=== PATIENT | female | born 2005 | race Caucasian/White ===

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

== ENCOUNTER 2025-08-20 22:15 | Emergency (ER) | payer OTHER, SELFPAY ==
[2025-08-20 22:15] VITALS: BP 125/82; PULSE 75; RESP 14; TEMP 36.9; O2SAT 99; BMI 23.3
[2025-08-20 22:18] VITALS: BP 113/53; PULSE 81; RESP 16; TEMP 36.9; O2SAT 97
--- OUTSIDE RECORDS SUMMARY | 2025-08-20 22:34 | XMS RPT_ITS | CCD ---
Author Organization [facility] Care Team Providers Care Project Management Intern Name Role Phone SELF Referring Unavailable KVNG RODRIGUEZ Attending Unavailable Problems Problem Classification Problem Date Documented Date Episodic/Chronic Contraceptive and procreative management (1 source) Encounter for removal of intrauterine contraceptive device; Translations: [Encounter for IUD removal] Onset: 06-22-2025 Episodic Immunizations and screening for infectious disease (1 source) Encounter for screening for human papillomavirus (HPV); Translations: [Encounter for screening for human papillomavirus (HPV)] Onset: 06-22-2025 Episodic Other screening for suspected conditions (not mental disorders or infectious disease) (1 source) Encounter for screening for malignant neoplasm of cervix; Translations: [Screening for cervical cancer] Onset: 06-22-2025 Episodic Results Test Name Value Interpretation Reference Range Facil ity CNOVon 06-22-2025 CNOV Office Visit (OBGYWM ) ANTONY DIOR ([id number]) 3 F Date Time Provider Department 06/22/25 9:40 AM KVNG RODRIGUEZ OBGYWM During your visit today, we recorded the following information about you: Blood pressure Weight Height Last Period 122/70 65.2 kg 1.704 m 06/07/25 Kvng Rodriguez MD 06/22/2025 10:06 AM Signed Patient declined yard associate. Antony is a 20 year old No obstetric history on file. who presents for an annual gynecologic exam with complaints, intermittent pelvic pain.. Has acne and pelvic pain since she had her child and had IUD placed. WOuld like to have it out. Still get period: Yes 06/07/2025 Bleeding amount bothersome: No Bleeding between periods: No Period symptoms: Acne; Cramps; Mood change Time with current partner: 1 yr Number of lifetime partners: 2 control frequency: Always, Lyletta placed 04/24/2022 HPV vaccine: yes x2 HPV:N/A Last pap smear: History of abnormal pap: No, all prior PAP smears have been normal Bothersome pelvic pain: No Last mammogram: never OB History No obstetric history on file. [employer] History LMP: 06/07/2025 Age at Menarche: 13 Age at First : Age at Menopause: [employer] History Comments: Sexual Activity: No sexual activity data on record; No partner data on record Contraception: No contraception data on record Menstrual Tracking History Flowsheet Row Appointment from 06/22/2025 in OB/Gynecology Period Cycle (Days) 5 Period Duration (Days) 5 Menstrual Flow Moderate No past medical history on file.No past surgical history on file.No family history on file.SOCIAL HISTORY REVIEW OF SYSTEMS Abdomen: No abdominal pain, nausea, vomiting, diarrhea, or constipation. No bloating, early satiety, indigestion, or increased flatulence. Bladder: No dysuria, gross hematuria, urinary frequency, urinary urgency, or incontinence. Breast: No breast lumps, nipple d/c, overlying skin changes, redness or skin retraction. Allergies and current medication updated:Yes SENSITIVE EXAM: The sensitive examination was discussed with the Patient or Patient's Authorized Litharge Supervisor. As applicable, any other physician, advance practice provider, medical student, or other health professional student that will be observing or involved in the sensitive examination for educational or training purposes was discussed with the Patient or Authorized Litharge Supervisor. The Patient or Authorized Litharge Supervisor has agreed to proceed with the sensitive examination. (Sensitive examination includes inspection and/or palpation of the breasts, pelvis, prostate and anorectal regions). EXAM: LMP 06/07/2025 GENERAL: pleasant, female in no apparent distress HEENT: Normocephalic, atraumatic, mucus membranes moist, and no lesions NECK: Supple, full range of motion, no adenopathy, and thyroid normal DERMATOLOGY: Normal, without lesions, non-icteric, and non-hirsute BREAST: soft, non-tender, symmetric, no dominant mass, normal nipple-areolar complex, no lymphadenopathy, and no nipple discharge CHEST: Normal inspiratory effort ABDOMEN: soft, non-tender, and no masses PELVIC: external genitalia normal, normal Bartholin's glands, urethra, Albin's glands, no vulvar lesions, no cervical lesions, good vaginal support, physiologic discharge present, normal appearing perineal body and perianal region, IUD strings visible BIMANUAL: uterus normal size, shape and consistency, no adnexal masses, and non-tender RECTOVAGINAL: deferred. NEURO: alert and oriented x3,exam grossly non-focal EXTREMITIES: normal ASSESSMENT/PLAN: 1) Health maintenance: Pap done with reflex HPV. 2) Contraception: condoms. Contraceptive options reviewed and information provided. 3) STD screening: Declined STI check. 4) Follow up one year or sooner as needed desires IUD removal MD Antony Avendano presents for removal of IUD due to pain. UNIVERSAL PROTOCOL / SAFETY CHECKLIST Procedure to be Performed: IUD removal Sign In: A Moment of CARE was completed. Appropriate PPE (Personal Protective Equipment) worn by all providers involved with the procedure. Special equipment not required. Patient/Surrogate Stated/Verified: Patient name, Date of , Relevant allergies, and The intended procedure Time Out: Relevant labs, photos, and/or imaging studies are not applicable. Intended patient and procedure match the source document(s) (e.g. consent, HANDP, associated studies [imaging, pathology]) are not applicable. Consent obtained and matches the intended procedure. Yes. Correct side/site is not applicable. Medications required for this procedure are verified. are not applicable. Fire risk assessed and is not applicable. Implants: are not applicable. Sign Out: Specimens are all correctly labeled and sent. All instruments, equipment, possible retai (more content not included)... Normal [facility] PAP TESTon 06-22-2025 ADEQUACY Normal [facility] Comment on above: Order Comment: Speci men Type: FLUID SPECIMEN Ordering Facility: [facility] Address: [address] [place] [address] Result Comment: Sati sfactory for interpretation. Transformation zone present Performed By: #### L [id number] #### [facility] CLIA [id number] [address] [place] [address] [place] [facility] CLIA [id number] [address] [place] [address] [place] CASE REPORT Normal [facility] Comment on above: Order Comment: Speci men Type: FLUID SPECIMEN Ordering Facility: [facility] Address: [address] [place] [address] Result Comment: Gyne cologic Cytology Report Case: [id number] Authorizing Provider: Kvng Rodriguez MD Collected: 06/22/2025 10:18 AM Ordering Location: OB/Gynecology Received: 06/22/2025 11:24 AM First Screen: Susan Cronin, CT, ASCP Specimen: Pap Test, ThinPrep, Cervix Performed By: #### L [id number] #### [facility] CLIA [id number] [address] [place] [address] [place] [facility] CLIA [id number] [address] [place] [address] [place] CLINICAL HISTORY, CYTOLOGY, AIR TANK ASSEMBLER First Pap Smear Normal [facility] Comment on above: Order Comment: Speci men Type: FLUID SPECIMEN Ordering Facility: [facility] Address: [address] [place] [address] Performed By: #### L [id number] #### [facility] CLIA [id number] [address] [place] [address] [place] [facility] CLIA [id number] [address] [place] [address] [place] FINAL PERFORMING LAB Normal [facility] Comment on above: Order Comment: Speci men Type: FLUID SPECIMEN Ordering Facility: [facility] Address: [address] [place] [address] Result Comment: Tech nical component, control clerk head screening performed at: [facility], [address] [place], [place] [id number] CLIA: [id number] Diagnostic interpretation performed at: [facility], [address] [place] [address] CLIA# [id number] Camp Assistant: García Shelley MD Performed By: #### L [id number] #### [facility] CLIA [id number] [address] [place] [address] [place] [facility] CLIA [id number] [address] [place] [address] [place] INTERPRETATION, CYTOLOGY, AIR TANK ASSEMBLER Normal [facility] Comment on above: Order Comment: Speci men Type: FLUID SPECIMEN Ordering Facility: [facility] Address: [address] [place] [address] Result Comment: Nega tive for intraepithelial lesion or malignancy. at 1601 EDT Performed By: #### L [id number] #### [facility] CLIA [id number] [address] [place] [address] [place] [facility] CLIA [id number] [address] [place] [address] [place] LMP 06/07/2025 Normal [facility] Comment on above: Order Comment: Speci men Type: FLUID SPECIMEN Ordering Facility: [facility] Address: [address] [place] [address] Performed By: #### L [id number] #### [facility] CLIA [id number] [address] [place] [address] [place] [facility] CLIA [id number] [address] [place] [address] [place] PAP DISCLAIMER COMMENT The Pap Smear is a screening test for cervical cancer. False negative results occur with all screening tests, emphasizing the need for rescreening at recommended intervals, and clinical correlation. Normal [facility] Comment on above: Order Comment: Speci men Type: FLUID SPECIMEN Ordering Facility: [facility] Address: [address] [place] [address] Performed By: #### L [id number] #### [facility] CLIA [id number] [address] [place] [address] [place] [facility] CLIA [id number] [address] [place] [address] [place] PAP BATTERY STACKER COMMENT This specimen has been analyzed by the FDA-approved redBus.in System, which uses digital imaging and an enhanced artificial intelligence image analysis algorithm to identify gonzalez of interest on the microscopic slide, to assist the raw products director and pathologist in evaluating cells on ThinPrep Pap tests. Following analysis, gonzalez of interest on the microscopic slide selected by the algorithm are reviewed by a raw products director. If a sample requires hierarchical review, the pathologist will review the same gonzalez of interest selected by the algorithm prior to final interpretation. Normal [facility] Comment on above: Order Comment: Speci men Type: FLUID SPECIMEN Ordering Facility: [facility] Address: [address] [place] [address] Performed By: #### L [id number] #### [facility] CLIA [id number] [address] [place] [address] [place] [facility] CLIA [id number] [address] [place] [address] [place] MR/BMS.Yosi 04-26-2022 MR/BMS.[facility] [address] [place], [place] [address] OFFICE VISIT Date of Service: 04/26/22 MR#: [id number] Acct: [id number] Name: ANTONY DIOR Rep #: [id number] : 2005 Provider: FLORENCE weinstein Age/Sex: 17/F Location: [facility] Status: Signed Intake Vital Signs 04/23/22 19:30 Height 5 ft 7 in Intake Visit Reasons: assessment Chief Complaint: assessment Allergies No Known Allergies Allergy (Verified 04/23/22 19:45) : Yes Current gender identity: female [facility] Medical History (Updated 04/25/22 @ 07:[address] García Coronado MD) Inguinal hernia Social History current gender identity: female Smoking Status: Never smoker alcohol intake: never substance use type: does not use Pregancy History 1 Elective abortions Hx Para 0 Spontaneous abortions Hx # Term Pregnancies Ectopic pregnancies Hx # Pregnancies Multiple births # of living children HPI HPI HPI: ANTONY DIOR, is a 17 F who presents to the office today for assessment. History provided by the patient. ROS ROS Const Constitutional: Denies fever(s) or lethargy : Denies nipple discharge Skin Skin/Breast: Reports breast skin changes (heavy, full, milk coming in this morning ); Denies breast pain or nipple discharge Details: q2-3 hours, 10-25 minutes, usually nursing on both sides, denies any nipple pain, breasts starting to feel full and heavy this morning, left breast more full than right Exam Maternal Assessment Breast Assessment Bilateral Breasts: Full Nipple Assessment Bilateral Nipples: Everted Areolar Tissue Areolar Tissue: Pliable Assessment Baby Feeding History Is your baby latching onto the breast: Yes Number of Breast Feedings in 24 hours: 8-12 Minutes per breast: First Breast: 10-15 Minutes per breast: Second Breast: 0-10 Supplements Supplement Type:: None Breast Pumping Type of Breast Pump: unsure of type of pump Frequency: has not started pumping Output - Last 24 hours Wets/Color:: 2-3 Stools/Color:: 3 brown Goals Breast Feeding Goals: Exclusive Exam Const General: comfortable and no acute distress Orientation: alert and oriented x3 Chest Breast inspection: normal inspection of the breasts (no redness ) Breast palpation: normal palpation of the breasts (full, no warmth ) Other: bilateral nipples without redness, cracking or discharge Resp Effort Inspection: normal respiratory effort Skin General: no rashes or lesions noted Psych Appearance: grossly normal Mental Status: mental status grossly normal Affect: normal affect Assessment and Plan Assessment and Plan (1) Care and examination of lactating mother: Plan: Educated on on demand q2-3 hours. Discussed with patient to monitor for engorgement, can pump 1-2 minutes as needed for comfort before a feed to help latch baby or after if still full- goal of not overpumping. Recommended increased fluid intake, oatmeal and body armor drinks. Follow up with PRN. Coding Level of Care Code Attention Deyvi Diagnoses Care and examination of lactating mother Z39.1 Time Spent (min) 15 Comment [id number] 04/26/22 1102 Date Christin Singh NP ARCHITECTURAL ADMINISTRATIVE ASSISTANT-C Darroner Signature: Date (if applicable) CC: Normal [facility] Pathology Specimen OBon PATH. Spec OB SEE PATHOLOGY REPORT Normal [facility] Comment on above: Order Comment: Comme nts: growth restrictionSend Specimen For (Specify): Studies @ [facility] Lab:RoutineTime of Procedure: 0434Date of Procedure: 04/24/22Reason specimen being sent to pathology (Hx/complications):growth restrictionType of specimen: PlacentaType of procedure performed: Other Result Comment: Spec imen submitted to Anatomical Pathology Department for testing. Performed By: #### L 350.1800 ####[facility] [address] [place], [place], [id number] CBC-Complete Blood Cnt No Di ffon 04-25-2022 Erythrocyte distribution width (RBC) [Ratio] 16.6 % High 11.6-14.6 [facility] Comment on above: Order Comment: Reaso n for Laboratory Test Day #1 Performed By: #### L 100.0500 #### [facility] [address] [place], [address] Hematocrit (Bld) [Volume fraction] 23.5 % Low 37-46 [facility] Comment on above: Order Comment: Reaso n for Laboratory Test Day #1 Performed By: #### L 100.0500 #### [facility] [address] [place], [address] Hemoglobin (Bld) [Mass/Vol] 7.1 g/dL Low 12.0-15.0 [facility] Comment on above: Order Comment: Reaso n for Laboratory Test Day #1 Performed By: #### L 100.0500 #### [facility] [address] [place], [address] MCH (RBC) [Entitic mass] 24.8 pg Low 25.0-35.0 [facility] Comment on above: Order Comment: Reaso n for Laboratory Test Day #1 Performed By: #### L 100.0500 #### [facility] [address] [place], [address] MCHC (RBC) [Mass/Vol] 30.2 g/dL Low 32-36 [facility] Comment on above: Order Comment: Reaso n for Laboratory Test Day #1 Performed By: #### L 100.0500 #### [facility] [address] [place], [address] MCV (RBC) [Entitic vol] 82.2 fL Normal 78-96 [facility] Comment on above: Order Comment: Reaso n for Laboratory Test Day #1 Performed By: #### L 100.0500 #### [facility] [address] [place], [address] Platelet mean volume (Bld) [Entitic vol] 10.4 fL Normal 6.2-12.0 [facility] Comment on above: Order Comment: Reaso n for Laboratory Test Day #1 Performed By: #### L 100.0500 #### [facility] [address] [place], [address] Platelets (Bld) [#/Vol] 211 10*3/uL Normal 150-450 [facility] Comment on above: Order Comment: Reaso n for Laboratory Test Day #1 Performed By: #### L 100.0500 #### [facility] [address] [place], [address] RBC (Bld) [#/Vol] 2.86 10*6/uL Low 4.1-4.8 [facility] Comment on above: Order Comment: Reaso n for Laboratory Test Day #1 Performed By: #### L 100.0500 #### [facility] [address] [place], [address] RDW SD 49.3 fl High 35.1-43.9 [facility] Comment on above: Order Comment: Reaso n for Laboratory Test Day #1 Performed By: #### L 100.0500 #### [facility] [address] [place], [address] WBC (Bld) [#/Vol] 11.9 10*3/uL Normal 4.5-13.0 [facility] Comment on above: Order Comment: Reaso n for Laboratory Test Day #1 Performed By: #### L 100.0500 #### [facility] [address] [place], [address] Discharge Instructionon 08-0 Discharge Instruction [facility] Medical Records Department [address] [place] [address] Instructions for Home/Discharge Instructions 04/25/22 0720 MR#: [id number] Acct: [id number] Name: ANTONY DIOR Rep #: [id number] : 2005 17 From: García Coronado MD PCP: Dr. Paty Dela Cruz DO Status:ADM IN Discharge Instructions Diet Discharge Diet: No restrictions Activity Discharge Activity: Return to Normal Activity, May Drive and May Shower May resume sexual activity in: 4-6 weeks Weight Bearing Status: Weight bearing as tolerated Dressing / Incision Call your doctor if your incision/area has: Continuous Slow Oozing and Foul Smelling Discharge Call your doctor if you observe: Fever of 101 or Higher, Shortness of breath and Chest pain Follow Up Care Please Follow Up With: García Coronado MD When: 4 to 6 weeks Test Results: Test results from this visit will be discussed in further detail at your follow-up appointment, if applicable. Discharge Plan Admission Admit Date/Time: 04/23/22 18:55 Attending Provider: Riay Coronado Primary Care Provider: Paty Dela Cruz Discharge Orders/Prescriptions Referrals / Follow Up: Paty Dela Cruz DO [Primary Care Provider] - Disposition Discharge Orders: Discharge Patient (Routine); Ordered 04/25/22 Ordered By: Dr. García Coronado 04/25/22 0721 García Coronado MD CC: Dr. Paty Dela Cruz DO Signed Normal [facility] Operative Reporton Operative Report [facility] Medical Records Department [address] [place] [address] Operative Report 04/24/22 0454 MR#: [id number] Acct: [id number] Name: ANTONY DIOR Rep #: [id number] : 2005 17 From: Riya Coronado DO PCP: Dr. Paty Dela Cruz DO Status:ADM IN Location: [id number] Maternal Data Information Final MAL: 05/05/22 Final MAL Source: US <20 weeks Vaginal Delivery Operative Information Date of Procedure: 04/24/22 Pre-Operative Diagnosis: Muller intrauterine . growth restriction Post-Operative Diagnosis: Muller intrauterine . growth restriction. Terminal meconium. Surgery / Procedure Performed: Spontaneous Vaginal Delivery Type of Anesthesia: Epidural Estimated Blood Loss: 350 cc Findings Description of Procedure: Spontaneous vaginal vaginal delivery of viable male. No nuchal cord. Baby to mom. Cord clamped and cut. Spontaneous delivery of placenta. Levonogestrel (Liletta) IUD placed immediately after delivery of placenta. IUD deployed at fundus. Strings cut at the level of introitus. Bilateral labial lacerations repaired in the usual fashion, hemostatic. For/benefits/alternat bolivar of IUD were discussed prior to placement. Discussed risk of perforation, low risk of infection, risk of expulsion IUD placement being up to 24%. Patient continued to desire placement, consented. A Gender: Male (1 minute): 8 (5 minute): 9 04/24/22 0459 Cosigner Signature (if applicable): CC: Dr. Paty Dela Cruz DO; Dr. Riya Coronado DO Signed Normal [facility] CBC W/Diff, Automatedon 08-0 -2021 Absolute Lymph 1.91 X10 3/uL Normal 0.83-4.51 [facility] Comment on above: Performed By: #### B TS, L100.0100 ####[facility] [address] [place], [address] Absolute Neut 5.8 X10 3/uL Normal 2.0-7.7 [facility] Comment on above: Performed By: #### Phil GALLAGHER, L100.0100 ####[facility] [address] [place], [address] Basophils/100 WBC (Bld) 0.2 % Normal 0-1 [facility] Comment on above: Performed By: #### B ELLIOTT, L100.0100 ####[facility] [address] [place], [address] Eosinophils/100 WBC (Bld) 0.4 % Normal 0-3 [facility] Comment on above: Performed By: #### Phil GALLAGHER, L100.0100 ####[facility] [address] [place], [address] Erythrocyte distribution width (RBC) [Ratio] 16.4 % High 11.6-14.6 [facility] Comment on above: Performed By: #### Phil GALLAGHER, L100.0100 ####[facility] [address] [place], [address] Hematocrit (Bld) [Volume fraction] 30.5 % Low 37-46 [facility] Comment on above: Performed By: #### Phil GALLAGHER, L100.0100 ####[facility] [address] [place], [address] Hemoglobin (Bld) [Mass/Vol] 9.5 g/dL Low 12.0-15.0 [facility] Comment on above: Performed By: #### B ELLIOTT, L100.0100 ####[facility] [address] [place], [address] IG% 0.700 Normal 0.0-0.9 [facility] Comment on above: Result Comment: IG% - Immature Granulocytes (promyelocytes, myelocytes and metamyelocytes) > 1% indicates that a LEFT SHIFT is Present. Performed By: #### Phil GALLAGHER, L100.0100 ####[facility] [address] [place], [address] Lymphocytes/100 WBC (Bld) 23.0 % Low 25-45 [facility] Comment on above: Performed By: #### Phil GALLAGHER, L100.0100 ####[facility] [address] [place], [address] MCH (RBC) [Entitic mass] 25.3 pg Normal 25.0-35.0 [facility] Comment on above: Performed By: #### Phil GALLAGHER, L100.0100 ####[facility] [address] [place], [address] MCHC (RBC) [Mass/Vol] 31.1 g/dL Low 32-36 [facility] Comment on above: Performed By: #### Phil GALLAGHER, L100.0100 ####[facility] [address] [place], [address] MCV (RBC) [Entitic vol] 81.1 fL Normal 78-96 [facility] Comment on above: Performed By: #### Phil GALLAGHER, L100.0100 ####[facility] [address] [place], [address] Monocytes/100 WBC (Bld) 5.5 % Normal 3-6 [facility] Comment on above: Performed By: #### Phil GALLAGHER, L100.0100 ####[facility] [address] [place], [address] Neutrophils/100 WBC (Bld) 70.2 % High 34-64 [facility] Comment on above: Performed By: #### Phil GALLAGHER, L100.0100 ####[facility] [address] [place], [address] Nucleated RBC (Bld) [#/Vol] 0 10*3/uL Normal 0-5 [facility] Comment on above: Performed By: #### Phil GALLAGHER, L100.0100 ####[facility] [address] [place], [address] Platelet mean volume (Bld) [Entitic vol] 11.3 fL Normal 6.2-12.0 [facility] Comment on above: Performed By: #### Pihl GALLAGHER, L100.0100 ####[facility] [address] [place], [address] Platelets (Bld) [#/Vol] 287 10*3/uL Normal 150-450 [facility] Comment on above: Performed By: #### Phil GALLAGHER, L100.0100 ####[facility] [address] [place], [address] RBC (Bld) [#/Vol] 3.76 10*6/uL Low 4.1-4.8 [facility] Comment on above: Performed By: #### Phil GALLAGHER, L100.0100 ####[facility] [address] [place], [address] RDW SD 47.7 fl High 35.1-43.9 [facility] Comment on above: Performed By: #### Phil GALLAGHER, L100.0100 ####[facility] [address] [place], [address] WBC (Bld) [#/Vol] 8.3 10*3/uL Normal 4.5-13.0 [facility] Comment on above: Performed By: #### Phil GALLAGHRE, L100.0100 ####[facility] [address] [place], [address] COVID 19 AG RAPID (RN COLLE T)on 04-23-2022 SARS-CoV-2 (COVID-19) RNA JOSE+probe Ql (Unsp spec) *Negative results from patients with symptom onset beyond five days should be treated as presumptive and confirmed by a molecular assay if clinically necessary. Negative results should not be used as the sole basis for treatment or for patient management. SARS-CoV-2 Ag Resp Ql IA.rapid *Positive results do not differentiate between SARS-CoV and SARS-CoV-2. If differentiation of the specific SARS virus is desired an additional sample and an additional order is required. SARS-CoV-2 Ag Resp Ql IA.rapid * This test has not been FDA cleared or approved; the test has been authorized by FDA under an Emergency Use Authorization (EAU) for use by laboratories certified under CLIA that meet the requirements to perform moderate, high, or waived complexity tests. SARS-CoV-2 Ag Resp Ql IA.rapid Normal Reference Range: Negative SARS-CoV-2 (COVID 19) Negative RAPID METHOD [employer] COVID19 Ag Card Normal [facility] Comment on above: Performed By: #### M 100.505 #### [facility] [address] [place], [address] H AND P Exam - OB/GYNon 08-0 H&P Exam - RECRUITING TEAM LEAD [facility] Medical Records Department [address] [place] [address] H P Exam - RECRUITING TEAM LEAD 04/23/222038 MR#: [id number] Acct: [id number] Name: ANTONY DIOR Rep #: [id number] : 2005 17 From: Riya Coronado DO PCP: Dr. Paty Dela Cruz, DO Status:ADM IN Location: [id number] HPI - General General Date of Admission: 04/23/22 Date of Service: 04/23/22 HPI Narrative 17-year-old at 38/2 weeks, MAL 05/05/2022 by 8-week ultrasound, admitted for induction of labor for growth restriction. Denies regular contractions, leaking of fluid, vaginal bleeding. Reports movement. Denies headache, vision changes, chest pain or shortness of breath, nausea or vomiting, diarrhea or constipation, fevers or chills. complicated by: Teen , growth restriction: Last growth ultrasound on 04/09/2022 EFW 2353 g 8th percentile, AC 3rd percentile. Maternal Data Information Final MAL: 05/05/22 Final MAL Source: US <20 weeks [facility] Medical History (Updated 04/23/22 @ 20:[address] Riya Coronado, DO) Inguinal hernia Medical History no medical history Allergy/AdvReac Type Severity Reaction Status Date / Time No Known Allergies Allergy Verified 04/23/22 19:45 no significant family history Surgical History no surgical history Social History Smoking Status: Never smoker alcohol intake: never substance use type: does not use History 1 Elective abortions Hx Para 0 Spontaneous abortions Hx # Term Pregnancies Ectopic pregnancies Hx # Pregnancies Multiple births # of living children NST FHR Rate Baby A Baseline: 135 Variability:: Moderate Accelerations:: 15 x 15 Decelerations:: None NST Reactive:: Yes FHR Category:: Category I ROS ROS Narrative Negative otherwise stated above Vital Signs Vital Signs Vital Signs: 04/23/22 19:21 04/23/22 19:22 04/23/22 19:22 Temperature Temperature Source Temporal Pulse Rate 80 Blood Pressure 124/76 BP Systolic 124 BP Diastolic 76 04/23/22 19:21 Temperature 97.1 F L Temperature Source Pulse Rate Blood Pressure BP Systolic BP Diastolic Weight Weight: 71.214 kg Body Mass Index (BMI) 24.5 Physical Exam Const alert, oriented x3 and no apparent distress HEENT normocephalic Head and Scalp: atraumatic Eyes PERRL Resp normal respiratory effort, no retractions and no use of accessory muscles Cardio regular rate GI soft to palpation, non-tender and non-distended Inspection: gravid Narrative: 3 cm per RN Extremity no pedal edema Skin no rashes or lesions noted Neuro moves all extremities, no focal motor deficits and no sensory deficits noted Psych mental status grossly normal and affect normal Labs Labs Labs: Blood Type A POSITIVE Antibody Screen Pending Hct 30.5 % (37-46) L Hgb 9.5 g/dL (12.0-15.0) L Syphilis Total Ab Non-reactive Rubella IgG Antibody Reactive (Nonreactive) Hep Bs Antigen Non-Reactive (Nonreactive) Chlamydia DNA (JOSE) Negative (Negative) Neisseria gonorrhoeae DNA (JOSE) Negative (Negative) HIV 1 2 Antibody Non-Reactive (Nonreactive) GBS neg 04/09/22 Assessment Plan (1) Encounter for induction of labor: PLAN: 17-year-old G1, P0 at 38/2 weeks admitted for induction of labor for growth restriction. Complicated by growth restriction teen . ??? Admit to labor and delivery for induction of labor with Pitocin. ??? Anemia of . Continue iron supplementation . ??? GBS negative ??? Plans for IUD placement. Discussed risks and benefits, risk of expulsion. (2) growth restriction: (3) Anemia affecting : 04/23/222046 Cosigner Signature (if applicable): CC: Dr. Paty Dela Cruz, DO; Dr. Riya Coronado, DO Signed Normal [facility] Surgery Specimen Level Von 0 04-23-2022 Surgery Specimen Level V OPERATION: Vaginal delivery PRE-OP DIAGNOSIS: Growth restriction TISSUE SUBMITTED: Placenta -------- Muller placenta (485 gm): Umbilical cord ??? trivascular with no inflammation. Placental membranes - No pathologic change. Placental disc ??? organizing intraparenchymal hemorrhage, increased intraparenchymal microcalcifications and fibrin plaques. AM:santa 04/26/2022 Slides are reviewed. SPECIMEN: PLACENTA / CLINICAL INFORMATION: A. Weight: 2.84 kg B. Gestational Age: 38 weeks C. Sex: Male PLACENTAL WEIGHT (POST FIXATION): 485 gm PLACENTAL DIMENSIONS: 17 x 16.5 x 3 cm PLACENTAL SHAPE: Usual ovoid PLACENTAL WEIGHT FOR GESTATIONAL AGE: Within 10-99th percentile (over/under percentile) MEMBRANES - Present A. Insertion: Marginal B. Site of rupture from edge: At edge of placental disc C. Color of membrane: Saunders-buck D. Abnormalities: None UMBILICAL CORD - Present A. Color: Saunders-buck B. Insertion: Eccentric C. Length: 41 cm D. Diameter: 1.3 cm E. Number of vessels: Three F. Abnormalities: None PLACENTAL DISC - Present A. Color of surface: Saunders-buck B. surface abnormalities: None C. Maternal cotyledons: Intact with minimal tears D. Attached retro placental clot: No clot E. Cut surface: Dark red and spongy F. Lesions: One plaque-like saunders-white lesion measuring 3 x 1.8 x 0.9 cm G. Separate clot: 6 x 3 x 1.5 cm SECTIONS SUBMITTED: 1. Umbilical cord ( end notched) 2. Umbilical cord, placental end 3. Membrane roll 4. Placental disc, and maternal surfaces, lesion 5. Placental disc, and maternal surfaces 6. Placental disc, and maternal surfaces AM:santa 04/25/2022 TC:5 CPT: 65215 -------- Signed (signature on file) Dr. Juan Carlos Epperson DO 04/26/22 1153 -------- Normal [facility] Comment on above: Performed By: #### P SUV ####[facility] [address] [place], [address] Type AND Screenon 04-23-2022 Ab SCREEN GEL Negative Normal [facility] Comment on above: Order Comment: Labor Performed By: #### B TS, L100.0100 ####[facility] [address] [place], [address] ABO and Rh group Nom (Bld) Blood group A Rh(D) positive Normal [facility] Comment on above: Order Comment: Labor Performed By: #### B TS, L100.0100 ####[facility] [address] [place], [address] Chlamydia/GC JOSE aptimaon GC BY NUC ACID Negative Normal Negative [facility] Comment on above: Result Comment: Perf ormed at: =G - [facility] [address] [id number] Garment Cutter: Rosa Laughlin MD, Phone: [phone] Performed By: #### L 7000.1800, L3890.6005, L100.0100, L509.8000, L3890.6100, L3890.6300, BPNTSNC, L509.4005, M100.2200 ####[facility] [address] [place], [place], [id number] CHLAMY,NUC ACID Negative Normal Negative [facility] Comment on above: Performed By: #### L 7000.1800, L3890.6005, L100.0100, L509.8000, L3890.6100, L3890.6300, BPNTSNC, L509.4005, M100.2200 ####[facility] [address] [place], [place], [id number] Urine Cultureon 09-09-2021 [facility] Lactobacillus specie s Nickerson Count 50,000-80,000 Normal [facility] Comment on above: Performed By: #### L 7000.1800, L3890.6005, L100.0100, L509.8000, L3890.6100, L3890.6300, BPNTSNC, L509.4005, M100.2200 ####[facility] [address] [place], [place], [id number] CBC W/Diff, Automatedon 08-23 Absolute Lymph 1.56 X10 3/uL Normal 0.83-4.51 [facility] Comment on above: Performed By: #### L 7000.1800, L3890.6005, L100.0100, L509.8000, L3890.6100, L3890.6300, BPNTSNC, L509.4005, M100.2200 #### [facility] [address] [place], [address] Absolute Neut 2.9 X10 3/uL Normal 2.0-7.7 [facility] Comment on above: Performed By: #### L 7000.1800, L3890.6005, L100.0100, L509.8000, L3890.6100, L3890.6300, BPNTSNC, L509.4005, M100.2200 #### [facility] [address] [place], [address] Basophils/100 WBC (Bld) 0.6 % Normal 0-1 [facility] Comment on above: Performed By: #### L 7000.1800, L3890.6005, L100.0100, L509.8000, L3890.6100, L3890.6300, BPNTSNC, L509.4005, M100.2200 #### [facility] [address] [place], [address] Eosinophils/100 WBC (Bld) 1.6 % Normal 0-3 [facility] Comment on above: Performed By: #### L 7000.1800, L3890.6005, L100.0100, L509.8000, L3890.6100, L3890.6300, BPNTSNC, L509.4005, M100.2200 #### [facility] [address] [place], [address] Erythrocyte distribution width (RBC) [Ratio] 14.5 % Normal 11.6-14.6 [facility] Comment on above: Performed By: #### L 7000.1800, L3890.6005, L100.0100, L509.8000, L3890.6100, L3890.6300, BPNTSNC, L509.4005, M100.2200 #### [facility] [address] [place], [address] Hematocrit (Bld) [Volume fraction] 36.1 % Low 37-46 [facility] Comment on above: Performed By: #### L 7000.1800, L3890.6005, L100.0100, L509.8000, L3890.6100, L3890.6300, BPNTSNC, L509.4005, M100.2200 #### [facility] [address] [place], [address] Hemoglobin (Bld) [Mass/Vol] 12.2 g/dL Normal 12.0-15.0 [facility] Comment on above: Performed By: #### L 7000.1800, L3890.6005, L100.0100, L509.8000, L3890.6100, L3890.6300, BPNTSNC, L509.4005, M100.2200 #### [facility] [address] [place], [address] IG% 0.200 Normal 0.0-0.9 [facility] Comment on above: Result Comment: IG% - Immature Granulocytes (promyelocytes, myelocytes and metamyelocytes) > 1% indicates that a LEFT SHIFT is Present. Performed By: #### L 7000.1800, L3890.6005, L100.0100, L509.8000, L3890.6100, L3890.6300, BPNTSNC, L509.4005, M100.2200 #### [facility] [address] [place], [address] Lymphocytes/100 WBC (Bld) 30.7 % Normal 25-45 [facility] Comment on above: Performed By: #### L 7000.1800, L3890.6005, L100.0100, L509.8000, L3890.6100, L3890.6300, BPNTSNC, L509.4005, M100.2200 #### [facility] [address] [place], [address] MCH (RBC) [Entitic mass] 29.6 pg Normal 25.0-35.0 [facility] Comment on above: Performed By: #### L 7000.1800, L3890.6005, L100.0100, L509.8000, L3890.6100, L3890.6300, BPNTSNC, L509.4005, M100.2200 #### [facility] [address] [place], [address] MCHC (RBC) [Mass/Vol] 33.8 g/dL Normal 32-36 [facility] Comment on above: Performed By: #### L 7000.1800, L3890.6005, L100.0100, L509.8000, L3890.6100, L3890.6300, BPNTSNC, L509.4005, M100.2200 #### [facility] [address] [place], [address] MCV (RBC) [Entitic vol] 87.6 fL Normal 78-96 [facility] Comment on above: Performed By: #### L 7000.1800, L3890.6005, L100.0100, L509.8000, L3890.6100, L3890.6300, BPNTSNC, L509.4005, M100.2200 #### [facility] [address] [place], [address] Monocytes/100 WBC (Bld) 10.6 % High 3-6 [facility] Comment on above: Performed By: #### L 7000.1800, L3890.6005, L100.0100, L509.8000, L3890.6100, L3890.6300, BPNTSNC, L509.4005, M100.2200 #### [facility] [address] [place], [address] Neutrophils/100 WBC (Bld) 56.3 % Normal 34-64 [facility] Comment on above: Performed By: #### L 7000.1800, L3890.6005, L100.0100, L509.8000, L3890.6100, L3890.6300, BPNTSNC, L509.4005, M100.2200 #### [facility] [address] [place], [address] Nucleated RBC (Bld) [#/Vol] 0 10*3/uL Normal 0-5 [facility] Comment on above: Performed By: #### L 7000.1800, L3890.6005, L100.0100, L509.8000, L3890.6100, L3890.6300, BPNTSNC, L509.4005, M100.2200 #### [facility] [address] [place], [address] Platelet mean volume (Bld) [Entitic vol] 9.8 fL Normal 6.2-12.0 [facility] Comment on above: Performed By: #### L 7000.1800, L3890.6005, L100.0100, L509.8000, L3890.6100, L3890.6300, BPNTSNC, L509.4005, M100.2200 #### [facility] [address] [place], [address] Platelets (Bld) [#/Vol] 296 10*3/uL Normal 150-450 [facility] Comment on above: Performed By: #### L 7000.1800, L3890.6005, L100.0100, L509.8000, L3890.6100, L3890.6300, BPNTSNC, L509.4005, M100.2200 #### [facility] [address] [place], [address] RBC (Bld) [#/Vol] 4.12 10*6/uL Normal 4.1-4.8 [facility] Comment on above: Performed By: #### L 7000.1800, L3890.6005, L100.0100, L509.8000, L3890.6100, L3890.6300, BPNTSNC, L509.4005, M100.2200 #### [facility] [address] [place], [address] RDW SD 46.3 fl High 35.1-43.9 [facility] Comment on above: Performed By: #### L 7000.1800, L3890.6005, L100.0100, L509.8000, L3890.6100, L3890.6300, BPNTSNC, L509.4005, M100.2200 #### [facility] [address] [place], [address] WBC (Bld) [#/Vol] 5.1 10*3/uL Normal 4.5-13.0 [facility] Comment on above: Performed By: #### L 7000.1800, L3890.6005, L100.0100, L509.8000, L3890.6100, L3890.6300, BPNTSNC, L509.4005, M100.2200 #### [facility] [address] [place], [address] HIV - WCHon 09-08-2021 HIV Non-Reactive Normal Nonreactive [facility] Comment on above: Performed By: #### L 7000.1800, L3890.6005, L100.0100, L509.8000, L3890.6100, L3890.6300, BPNTSNC, L509.4005, M100.2200 #### [facility] [address] [place], [place], [id number] Hepatitis B Surface Antigeno n 09-08-2021 HEP B Surf Ag Non-Reactive Normal Nonreactive [facility] Comment on above: Performed By: #### L 7000.1800, L3890.6005, L100.0100, L509.8000, L3890.6100, L3890.6300, BPNTSNC, L509.4005, M100.2200 ####[facility] [address] [place], [address] Hepatitis C Antibodyon 09-08 Hepatitis C Ab Non-Reactive Normal Nonreactive [facility] Comment on above: Result Comment: Non Reactive: < 0.8 Equivocal: >/= 0.8 to < 1.0 Reactive: >/= 1.0 The CDC recommends that a reactive/equivocal HCV antibody result be followed up by the HCV Nucleic Acid Amplification test (182639) Performed By: #### L 7000.1800, L3890.6005, L100.0100, L509.8000, L3890.6100, L3890.6300, BPNTSNC, L509.4005, M100.0 ####[facility] [address] [place], [address] L509.8000on 09-08-2021 Syphilis Abs Non-Reactive Normal [facility] Comment on above: Performed By: #### L 7000.1800, L3890.6005, L100.0100, L509.8000, L3890.6100, L3890.6300, BPNTSNC, L509.4005, M100.2200 #### [facility] [address] [place], [address] T AND S-No Charge w /PNPon 09-08-2021 Ab SCREEN GEL Negative Normal [facility] Comment on above: Order Comment: PN N Performed By: #### L 7000.1800, L3890.6005, L100.0100, L509.8000, L3890.6100, L3890.6300, BPNTSNC, L509.4005, M100.2200 #### [facility] [address] [place], [address] ABO and Rh group Nom (Bld) Blood group A Rh(D) positive Normal [facility] Comment on above: Order Comment: PN N Performed By: #### L 7000.1800, L3890.6005, L100.0100, L509.8000, L3890.6100, L3890.6300, BPNTSNC, L509.4005, M100.2200 #### [facility] [address] [place], [address] Rubella IgGon 09-08-2021 Rubella IgG Reactive Normal Nonreactive [facility] Comment on above: Result Comment: Anti body Results Interpretation of Immune Status Non Reactive Presumed Non-Immune Equivocal Equivocal Reactive Presumed Immune Performed By: #### L 7000.1800, L3890.6005, L100.0100, L509.8000, L3890.6100, L3890.6300, BPNTSNC, L509.4005, M100.2200 #### [facility] [address] [place], [place], [id number] Progress Noteon 03-15-2021 [employer] Authentication Interface Message Text Antony Dior is a 16 y.o. female patient. PHQ9 Assessment With Score Performed by: Susan Watts MD Authorized by: Susan Watts MD PHQ-9 See PHQ9 Flowsheet Feeling down, depressed, irritable or hopeless: Not at all Little interest or pleasure in doing things: Not at all Trouble falling or staying sleep, or sleeping too much: Several days Poor appetite, weight loss, or overeating: Not at all Feeling tired or having little energy: Not at all Feeling bad about yourself - or feeling that you are a failure, or have let yourself or your family down: Not at all Trouble concentrating on things, like school work, reading or watching TV: Not at all Moving or speaking so slowly that other people could have noticed. Or the opposite - being so fidgety or restless that you were moving around a lot more than usual: Not at all Thoughts that you would be better off , or of hurting yourself in some way: Not at all In the past year have you felt depressed or sad most days, even if you felt OK sometimes?: No If you are experiencing any of the problems on this form, how difficult have these problems made it for you to do your work, take care of things at home or get along with other people?: Not difficult at all Has there been a time in the past month when you have had serious thoughts about ending your life?: No Have you ever, in your whole life, tried to kill yourself or made a suicide attempt?: No PHQ-9 Manual Score: 1 PHQ-9 Total Score: 1 Health Risk Assessment - CRAFFT Authorized by: Susan Watts MD CRAFFT Results: 1. Drink more than a few sips of beer, wine, or any drink containing alcohol? Put 0 if none.: 0 2. Use any marijuana (weed, oil, or hash by smoking, vaping, or in food) or synthetic marijuana (like K2, Spice)? Put 0 if none.: 0 3. Use anything else to get high (like other illegal drugs, prescription or btba-asr-xvkodzi medications, and things that you sniff, lara, or vape)? Put 0 if none.: 0 4. Use any tobacco or nicotine products (for example, cigarettes, e-cigarettes, hookahs or smokeless tobacco)?: 0 5. Have you ever ridden in a CAR driven by someone (including yourself) who was high or had been using alcohol or drugs?: No Electronically signed by: Himanshu Banda ID: Antony Dior is a 16 y.o. female. Her chief complaint(s) include: 16 YEAR WELL CHILD Assessment 1. Encounter for routine child health examination without abnormal findings 2. Exercise counseling 3. Encounter for dietary counseling and surveillance 4. Need for vaccination Plan Antony was seen today for 16 year well child. Diagnoses and all orders for this visit: Encounter for routine child health examination without abnormal findings - PHQ9 Assessment With Score - Health Risk Assessment - [place] Exercise counseling Encounter for dietary counseling and surveillance Need for vaccination - Meningococcal B (BEXSERO) Growth and development reviewed Call for any questions/concerns/pr oblems/changes All questions answered Return in about 1 year (around 03/15/2022) for well check. Subjective She is accompanied by her mother. Independent history obtained from mother. 16 YEAR WELL CHILD Home: Antony eats meals with family. Education: Antony is in 11th grade and is doing well. Eating: Antony eats regular meals including fruits and vegetables. Activities & Sports: Antony has friends, performs at least 1 hour of physical activity daily, plays individual sports and plays team sports. Drugs: Antony does not use tobacco and does not use alcohol. Menstruation Menstruation: regular periods Output Urine and Stool Pattern: Urine and Stool Pattern: Normal stool pattern, normal urine pattern. Sleep Sleeping Difficulty: no difficulty sleeping Screenings Previous Vaccine Reactions: No. Hearing Vision Concerns: The caregiver has no concerns about the patient's hearing. The caregiver has no concerns about the patient's vision. Primary Care Review of Systems Objective Vital Signs 03/15/21 1429 BP: 112/74 Pulse: 78 Temp: 36.8 C (98.3 F) TempSrc: Temporal Weight: 55.8 kg Height: 170 cm Body mass index is 19.31 kg/m . Physical Exam Nursing note reviewed. Constitutional: She appears well. She is active. No distress. HENT: Head: Atraumatic. Ears: Right Ear: Tympanic membrane normal. Left Ear: Tympanic membrane normal. Mouth/Throat: Mucous membranes are moist. Eyes: Conjunctivae are normal. Cardiovascular: Normal rate and regular rhythm. Heart murmur not heard. Pulmonary/Chest: Breath sounds normal. There is normal air entry. Neurological: She is alert. Vitals reviewed: Blood pressure 112/74, pulse 78, temperature 36.8 C (98.3 F), temperature source Temporal, height 170 cm, weight 55.8 kg, last menstrual period 03/03/2021. Normal [facility] C. trachomatis/GC PCR Panel on GeneXperton 02-21-2021 C. trachomatis/GC PCR Panel on GeneXpert Reason for preventing automatic release->Other Is this specimen being sent to an external lab?->No Release to patient->Manual release only [id number]&Urine-First Void^^^Urine&Urine C. trachomatis PCR on GeneXpert: NEGATIVE-Chlamydia trachomatis DNA: NOT DETECTED. Source: [facility] Collected: 02/21/21 14:15 Site: Urine Received : 02/21/21 19:41 C. trachomatis PCR on GeneXpert FINAL 02/22/21 10:06 NEGATIVE-Chlamydia trachomatis DNA: NOT DETECTED. - GC PCR on GeneXpert FINAL 02/22/21 10:06 NEGATIVE-Neisseria gonorrhea DNA: NOT DETECTED. - Method: DNA detection by RT PCR on a GeneXpert analyzer. - NOTE: This Amplified DNA Assay should not be used for the evaluation of suspected sexual abuse or for other medico-legal indications. - Screening urine specimens for Chlamydia trachomatis and Neisseria gonorrhoeae using nucleic acid amplification is an accurate and sensitive method compared to standard techniques of detection of these pathogens. Because the pathogen is diluted in urine, it is somewhat less sensitive than a direct swab specimen evaluated by nucleic acid amplification techniques. Normal [facility] Comment on above: Performed By: #### C [facility] #### [place] [address] Progress Noteon 02-21-2021 [employer] Authentication Interface Message Text Patient ID: Antony Dior is a 15 y.o. female. Her chief complaint(s) include: Dysuria (reaccuring UTIs) Assessment 1. Urinary tract infection with hematuria, site unspecified 2. Pelvic pain in female 3. Urinary frequency 4. Urinary urgency Plan Antony was seen today for dysuria. Diagnoses and all orders for this visit: Urinary tract infection with hematuria, site unspecified - cephALEXin (KEFLEX) 250 MG/5ML oral suspension; Take 10 mL (500 mg) by mouth 2 times daily for 10 days - Urine culture (Clinic Collect) Pelvic pain in female - POCT urinalysis dipstick - POCT urine HCG - C.trachomatis/GC PCR Panel - Urine culture (Clinic Collect) Urinary frequency - POCT urinalysis dipstick - POCT urine HCG - C.trachomatis/GC PCR Panel - Urine culture (Clinic Collect) Urinary urgency - POCT urinalysis dipstick - POCT urine HCG - C.trachomatis/GC PCR Panel - Urine culture (Clinic Collect) Return if symptoms worsen or fail to improve. Symptoms could be due to UTI vs kidney stone vs other etiology. UA with 2+ LE, 3+ protein, 3+ blood- will start treatment with keflex while awaiting urine culture results. Urine hcg negative. GC/chlamydia results pending. Discussed importance of condom use with every sexual encounter to prevent STIs and . If symptoms not improving, will refer to urology for further eval/treatment. Subjective HPI Comments: Getting sharp pains in pelvis/abdomen, frequent urge to urinate and feels crampy whenever she has to urinate. So uncomfortable that she wants to just lay in bed when it happens, will soak in the tub to try to help. No dysuria. Occasionally notices blood in urine/when wiping. Drinking water- at least a few cups per day, often more. Does drink caffeine. No bubble baths. Uses unscented body wash. Has been happening over a year, not getting better. Coming and going intermittently. Stopped control a month ago because thought maybe the control was causing her symptoms- didn't make a difference. Last sex was about 2 weeks ago- 02/05. Did not use a condom. LMP 5/8-02/01. No vaginal discharge. She is accompanied by her mother. Independent history obtained from mother. Dysuria The patient's symptoms have included urinary frequency and urinary urgency. The patient's symptoms have included no fever, no decrease in physical activity, no decreased appetite, no decreased fluid intake, no vaginal discharge, no back pain and no rash. Review of Systems Genitourinary: Positive for dysuria. Objective Vital Signs 02/21/21 1355 Temp: 36.8 C (98.2 F) TempSrc: Temporal Weight: 55.5 kg There is no height or weight on file to calculate BMI. Physical Exam Constitutional: She appears well. She is active. No distress. HENT: Head: Atraumatic. Nose: No nasal discharge. Mouth/Throat: Mucous membranes are moist. Eyes: Conjunctivae are normal. Cardiovascular: Normal rate and regular rhythm. Heart murmur not heard. Pulmonary/Chest: Effort normal and breath sounds normal. There is normal air entry. No respiratory distress. She has no wheezes. She has no rhonchi. She has no rales. Abdominal: Soft. She exhibits no distension. There is no abdominal tenderness. There is no guarding. Musculoskeletal: No pain, swelling, or limited range of motion at any joint. General: No tenderness. Neurological: She is alert. She exhibits normal muscle tone. Skin: Skin is warm. Skin is not pale. Findings: No rash. Vitals reviewed: Temperature 36.8 C (98.2 F), temperature source Temporal, weight 55.5 kg. Last Result POCT urine HCG Collection Time: 02/21/21 2:20 PM Result Value Ref Range hCG Urine POCT Negative Negative Control Line *Present Clear Background *Present Lot Number [id number] POCT urinalysis dipstick Collection Time: 02/21/21 2:13 PM Result Value Ref Range POCT, Leukocytes, Urine 2+ (Moderate) (A) Negative POCT Nitrite, Urine Negative Negative POCT Protein, Urine 3+ (300mg/dL) (A) Negative - Trace mg/dl POCT Urine pH 6.0 5.0 - 8.0 pH POCT Blood, Urine 3+ (Large) (A) Negative POCT Urine Specific [place] 1.025 1.005 - 1.030 POCT Ketones, Urine Negative Negative mg/dl POCT Glucose, Urine Negative Negative mg/dl Normal [facility] Urine Cultureon 02-21-2021 Bacteria identified Cx Nom (U) Is this specimen being sent to an external lab?->No Urine already at the lab. Went out on 02/21/21 1800. Add on lab Release to patient->Automatic 00450&Urine-Bladder^^ ^Urine&Urine Urine Culture: Gram negative sherin Source: URNBL Collected: 02/21/21 14:13 Site: Urine Received : 02/22/21 09:42 Urine Culture FINAL 02/24/21 09:09 50,000 - 100,000 CFU/ml of Normal Skin/urogenital teddy present <10,000 CFU/ml Gram negative sherin If further work-up is needed, providers should call the Microbiology lab within 3 days. Normal [facility] Comment on above: Performed By: #### U [facility] #### [place] [address] Progress Noteon 09-21-2020 [employer] Authentication Interface Message Text Patient ID: Antony Dior is a 15 y.o. female. Her chief complaint(s) include: Painful Urination (x2 day) Assessment 1. Urinary tract infection without hematuria, site unspecified 2. Symptoms involving urinary system Plan Antony was seen today for painful urination. Diagnoses and all orders for this visit: Urinary tract infection without hematuria, site unspecified - cephALEXin (KEFLEX) 250 MG/5ML oral suspension; Take 10 mL (500 mg) by mouth 3 times daily for 10 days - Urine culture Symptoms involving urinary system - POCT urinalysis dipstick Return if symptoms worsen or fail to improve. Subjective She is unaccompanied. Dysuria The onset has been acute. The pattern is persistent. The course is unchanging. The patient's symptoms have included change in urine color, change in urine odor and urinary burning. The patient's symptoms have included no chills, no fever, no abdominal pain, no nausea, no vomiting, no diarrhea, no constipation, no urinary urgency, no bladder incontinence, no polyuria, no vaginal discharge, no back pain and no rash. The contributing factors have included sexual activity. Sick contacts: none. There have been no previous evaluations. Review of Systems Genitourinary: Positive for dysuria. Objective Vital Signs 09/21/20 1122 Temp: 37 C (98.6 F) TempSrc: Temporal Weight: 55.7 kg There is no height or weight on file to calculate BMI. Physical Exam Nursing note reviewed. Constitutional: She appears well. She is active. No distress. HENT: Head: Atraumatic. Ears: Right Ear: External ear normal. Left Ear: External ear normal. Mouth/Throat: Mucous membranes are moist. Eyes: Conjunctivae are normal. Cardiovascular: Normal rate. Pulmonary/Chest: Effort normal and breath sounds normal. There is normal air entry. No respiratory distress. Abdominal: Soft. Bowel sounds are normal. She exhibits no distension and no mass. There is no hepatosplenomegaly. There is no abdominal tenderness. There is no guarding. No hernia. Musculoskeletal: No pain, swelling, or limited range of motion at any joint. Neurological: She is alert. Skin: Capillary refill takes less than 3 seconds. Skin is warm. Findings: No rash. Vitals reviewed: Temperature 37 C (98.6 F), temperature source Temporal, weight 55.7 kg. Last Result POCT urinalysis dipstick Collection Time: 09/21/20 11:55 AM Result Value Ref Range POCT, Leukocytes, Urine Trace (A) Negative POCT Nitrite, Urine Negative Negative POCT Protein, Urine Negative Negative - Trace mg/dl POCT Urine pH 6.0 5.0 - 8.0 pH POCT Blood, Urine Negative Negative POCT Urine Specific [place] 1.010 1.005 - 1.030 POCT Ketones, Urine Negative Negative mg/dl POCT Glucose, Urine Negative Negative mg/dl Normal [facility] Urine Cultureon 09-21-2020 Bacteria identified Cx Nom (U) Is this specimen being sent to an external lab?->No [id number]&Urine-Midstream ^^^Urine&Urine Urine Culture: 50,000 - 100,000 CFU/ml of Normal Skin/urogenital teddy Source: URNMD Collected: 09/21/20 12:05 Site: Urine Received : 09/21/20 20:42 Urine Culture FINAL 09/23/20 09:31 50,000 - 100,000 CFU/ml of Normal Skin/urogenital teddy present Normal [facility] Comment on above: Performed By: #### U RINE #### [place] [address] Encounters Encounter Date Encounter Type Care Provider Facility Start: 06-22-2025 End: 06-22-2025 ambulatory SELF Facility:[facility] Start: 06-22-2025 Encounter for gyneco logical examination (general) (routine) without abnormal findings KVNG RODRIGUEZ [facility] Payers Date Payer Category Payer Unknown [id number] Progress note 06-22-2025 Note Date & Type Note Facility 06-22-2025 Note HNO ID: [id number] Author: KVNG RODRIGUEZ MD Service: ? 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 Antony is a 20 year old No obstetric history on file. who presents for an annual gynecologic exam with complaints, intermittent pelvic pain.. Has acne and pelvic pain since she had her child and had IUD placed. WOuld like to have it out. Still get period: Yes 06/07/2025 Bleeding amount bothersome: No Bleeding between periods: No Period symptoms: Acne; Cramps; Mood change Time with current partner: 1 yr Number of lifetime partners: 2 control frequency: Always, Lyletta placed 04/24/2022 HPV vaccine: yes x2 HPV:N/A Last pap smear: History of abnormal pap: No, all prior PAP smears have been normal Bothersome pelvic pain: No Last mammogram: never OB History No obstetric history on file. [employer] History LMP: 06/07/2025 Age at Menarche: 13 Age at First : Age at Menopause: [employer] History Comments: Sexual Activity: No sexual activity data on record; No partner data on record Contraception: No contraception data on record Menstrual Tracking History Flowsheet Row Appointment from 06/22/2025 in OB/Gynecology Period Cycle (Days) 5 Period Duration (Days) 5 Menstrual Flow Moderate No past medical history on file.No past surgical history on file.No family history on file.SOCIAL HISTORY REVIEW OF SYSTEMS Abdomen: No abdominal pain, nausea, vomiting, diarrhea, or constipation. No bloating, early satiety, indigestion, or increased flatulence. Bladder: No dysuria, gross hematuria, urinary frequency, urinary urgency, or incontinence. Breast: No breast lumps, nipple d/c, overlying skin changes, redness or skin retraction. Allergies and current medication updated:Yes SENSITIVE EXAM: The sensitive examination was discussed with the Patient or Patient's Authorized Litharge Supervisor. As applicable, any other physician, advance practice provider, medical student, or other health professional student that will be observing or involved in the sensitive examination for educational or training purposes was discussed with the Patient or Authorized Litharge Supervisor. The Patient or Authorized Litharge Supervisor has agreed to proceed with the sensitive examination. (Sensitive examination includes inspection and/or palpation of the breasts, pelvis, prostate and anorectal regions). EXAM: LMP 06/07/2025 GENERAL: pleasant, female in no apparent distress HEENT: Normocephalic, atraumatic, mucus membranes moist, and no lesions NECK: Supple, full range of motion, no adenopathy, and thyroid normal DERMATOLOGY: Normal, without lesions, non-icteric, and non-hirsute BREAST: soft, non-tender, symmetric, no dominant mass, normal nipple-areolar complex, no lymphadenopathy, and no nipple discharge CHEST: Normal inspiratory effort ABDOMEN: soft, non-tender, and no masses PELVIC: external genitalia normal, normal Bartholin's glands, urethra, Albin's glands, no vulvar lesions, no cervical lesions, good vaginal support, physiologic discharge present, normal appearing perineal body and perianal region, IUD strings visible BIMANUAL: uterus normal size, shape and consistency, no adnexal masses, and non-tender RECTOVAGINAL: deferred. NEURO: alert and oriented x3,exam grossly non-focal EXTREMITIES: normal ASSESSMENT/PLAN: 1) Health maintenance: Pap done with reflex HPV. 2) Contraception: condoms. Contraceptive options reviewed and information provided. 3) STD screening: Declined STI check. 4) Follow up one year or sooner as needed desires IUD removal MD Antony Avendano presents for removal of IUD due to pain. UNIVERSAL PROTOCOL / SAFETY CHECKLIST Procedure to be Performed: IUD removal Sign In: A Moment of CARE was completed. Appropriate PPE (Personal Protective Equipment) worn by all providers involved with the procedure. Special equipment not required. Patient/Surrogate Stated/Verified: Patient name, Date of , Relevant allergies, and The intended procedure Time Out: Relevant labs, photos, and/or imaging studies are not applicable. Intended patient and procedure match the source document(s) (e.g. consent, HANDP, associated studies [imaging, pathology]) are not applicable. Consent obtained and matches the intended procedure. Yes. Correct side/site is not applicable. Medications required for this procedure are verified. are not applicable. Fire risk assessed and is not applicable. Implants: are not applicable. Sign Out: Specimens are all correctly labeled and sent. All instruments, equipment, possible retained foreign bodies are accounted for. Yes. The post-procedure plan of care has been communicated to the patient or surrogate. PROCEDURE: Speculum placed in vagina, IUD string visualized and grasped with ring forceps. ASSESSMENT/PLAN: IUD removed without diff (more content not included)... [facility] Summary Purpose Family History No Family History Records FoundNo Family History Records FoundNo Family History Records Found Advance Directives No Advanced Directives Records FoundNo Advanced Directives Records FoundNo Advanced Directives Records Found Additional Source Comments INFORMATION SOURCE (unrecogn ized section and content) DATE CREATED AUTHOR 03/16/2021 [facility] DATE CREATED AUTHOR AUTHOR'S ORGANVICENTA ATION 05/04/2022 [facility] DATE CREATED AUTHOR AUTHOR'S ORGANIZ ATION 06/27/2025 [facility] FOR RECORDS PERTAINING TO PATIENTS WHO ARE OR HAVE BEEN ENROLLED IN A CHEMICAL DEPENDENCY/SUBSTANCEABUSE PROGRAM, SOME INFORMATION MAY BE OMITTED. This clinical summary was aggregated from multiple sources. Caution should be exercised in using it in the provision of clinical care. This summary normalizes information from multiple sources, and as a consequence, information in this document may materially change the coding, format and clinical context of patient data. In addition, data may be omitted in some cases. CLINICAL DECISIONS SHOULD BE BASED ON THE PRIMARY CLINICAL RECORDS. [facility] [employer] provides no warranty or guarantee of the accuracy or completeness of information in this document.
[2025-08-20 22:35] LABS: Mucous, Urine 0 SEEN /hpf (<or=2+)
--- NOTE | 2025-08-20 22:37 | EX.ED.DYSGE1 ---
HPI History of Present Illness Chief Complaint: Complaint Narrative Narrative: Patient was seen and examined after presenting to ED for dysuria states that she has a history of frequent UTIs she reports that she has been having lower back pain as well with the symptoms and to the point where sometimes when she is driving she feels so warm that she has to roll the windows down and 20 degree weather. PFSH PFS Medical History Inguinal hernia Home Medications ?Medication ?Instructions ?Recorded ?Last Taken ?Type cephalexin 500 mg capsule 500 mg PO 4X/DAY 7 days #28 08/20/25 Unknown Rx CAPSULES Allergy/AdvReac Type Severity Reaction Status Date / Time No Known Allergies Allergy Verified 08/20/25 22:17 Social History Smoking Status: Current every day smoker tobacco type: e-cigarettes alcohol intake: never substance use type: does not use ROS ROS ED ROS Narrative Pertinent Positives: Low back pain dysuria cloudy urine increased urinary frequency chills Pertinent Negatives: Nausea vomiting fevers diarrhea hematuria abnormal vaginal discharge or vaginal bleeding The remainder of review of systems negative unless otherwise stated in the HPI above. Systems reviewed including constitutional, psychiatric, cardiovascular, respiratory, integument, HENT, gastrointestinal. EXAM Physical Exam Narrative Exam Narrative: Patient is afebrile hemodynamically stable does not appear toxic or in distress she is normocephalic and atraumatic. Abdomen is soft nontender nondistended up and ambulatory without issue normal range of motion of head and neck Const Vital Signs: 08/20/25 22:15 08/20/25 22:18 Temperature 98.5 F 98.5 F Temperature Source Oral Oral Pulse Rate 75 81 Respiratory Rate 14 16 Blood Pressure 125/82 H 113/53 L Blood Pressure Mean 96 73 Pulse Ox 99 97 Oxygen Delivery Method Room Air Room Air MDM MDM MDM Narrative Medical decision making narrative: Nursing notes, triage notes, available previous documentation, and vital signs were reviewed. Any discrepancies noted were addressed. Differential Diagnoses: UTI lower suspicion for viral syndrome or nephrolithiasis or appendicitis Interventions: Pyridium Antibiotics Given: Keflex Labs Reviewed: Reactively not leukocyte esterase of 500 Previous Documentation Reviewed: None available or applicable at this time. ED Course: Patient presenting with symptoms as stated above patient will undergo a urinalysis as well as a urine test we will treat accordingly. I do not believe patient requires any other lab work or advanced imaging. Not negative nitrites but she is 500 leukocyte esterase and given her symptoms we will provide her with a dose of Pyridium here as well as a dose of Keflex we will write her prescription for Keflex as well return precautions and follow-up recommendations provided she is stable for discharge home. This note was made utilizing voice recognition software. All attempts were made to correct spelling or other errors prior to note completion. However, due to the fast-paced nature of emergency medicine, some errors may still be present. Lab Data Labs: Laboratory Results - last 24 hr 08/20/25 22:24 Urine Color Yellow Urine Clarity Sl. Cloudy Urine pH 6.0 Ur Specific [place] 1.020 Urine Protein 15 H Urine Glucose (UA) Normal Urine Ketones Negative Urine Occult Blood 10 H Urine Nitrite Negative Urine Bilirubin Negative Urine Urobilinogen Normal Ur Leukocyte Esterase 500 H Urine Test Negative Discharge Plan Triage Chief Complaint: Complaint ED Provider: Wesley Ward Dx/Rx/DC Orders Clinical Impression: Acute UTI, Dysuria, Increased urinary frequency Instructions: Urinary Tract Infections in Women Prescriptions: New cephalexin 500 mg capsule 500 mg PO 4X/DAY 7 Days Qty: 28 0RF Primary Care Provider: Care Physician,No Primary Referrals: Annetta Torres MD [Med Staff - Child Custody Evaluator, Internal Medicine] Care Physician,No Primary [Primary Care Provider, Medical] Activity Restrictions/Additional Instructions: Be sure to take the antibiotics until they are completed follow-up with your primary care Print Language: [place] Citizen Disposition Disposition: Home, Self Care
[2025-08-20 22:41] LABS: Color, Urine Yellow (Yellow); Glucose, Dipstick Normal (Normal); Ketone-Dipstick Negative (Negative); Leukocyte Esterase-Dipstick 500 /ul (Negative); Nitrite-Dipstick Negative (Negative); Occult Blood-Urine 10 /ul (Negative); Protein-Dipstick 15 mg/dl (Negative); Specific Gravity, Urine 1.020 (1.002-1.030); Urine Bilirubin Dipstick Negative (Negative)
[2025-08-20 22:43] LABS: Internal QC Validated? YES +Cl - CLEAR BKGD
[2025-08-20 22:44] LABS: Pregnancy, Urine Negative Negative; Record Kit Lot#,Urine Preg 0000980607
[2025-08-20 22:56] VITALS: BP 121/52; PULSE 82; RESP 16; TEMP 36.9; O2SAT 99
[2025-08-20 23:11] LABS: Red Blood Cells-Urine 0-5 SEEN /hpf (0-5)
[2025-08-20 23:12] LABS: Squamous Epithelial Cells - UA 10-25 SEEN /hpf (5-10)
== END 2025-08-20 22:59 | disposition home or self-care (01) ==
PROVIDERS: Emergency Provider Specialist/Technologist Athletic Trainer; Visit Provider Specialist/Technologist Athletic Trainer
DX: N39.0 Urinary tract infection, site not specified (principal); R35.0 Frequency of micturition; R30.0 Dysuria; F17.290 Nicotine dependence, other tobacco product, uncomplicated; Z87.440 Personal history of urinary (tract) infections
CPT/HCPCS: 81001; 81025; 99283

== ENCOUNTER 2025-09-01 20:58 | Emergency (ER) | payer OTHER, SELFPAY ==
[2025-09-01 21:00] VITALS: TEMP 36.1; BMI 24.7
--- OUTSIDE RECORDS SUMMARY | 2025-09-01 21:08 | XMS RPT_ITS | CCD ---
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 Antony is a 20 year old No [...] OB History No obstetric history on file. 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 As applicable, any other physician, advance practice provider, medical student, or other health professional student that will be observing or involved in the sensitive examination for educational or training purposes was discussed with the Patient or Authorized Front End Alignment Specialist. The Patient or Authorized Front End Alignment Specialist has agreed to proceed with the sensitive [...] external genitalia normal, normal Bartholin's glands, urethra, [place]'s glands, no vulvar lesions, no cervical lesions, [...] possible retai (more content not included)... [facility] PAP TESTon 06-22-2025 ADEQUACY [facility] Comment on above: Order Comment: Speci men Type: FLUID SPECIMEN Ordering Facility: [facility] Address: [address] [place] [address] Result Comment: Sati sfactory for interpretation. Transformation zone present Performed By: #### L [id number] #### [facility] CLIA [id number] [address] [place] [address] [place] [facility] CLIA [id number] [address] [place] [address] [place] CASE REPORT [facility] Comment on above: Order Comment: Speci men Type: FLUID SPECIMEN Ordering Facility: [facility] Address: [address] [place] [address] Result Comment: Gyne cologic Cytology Report Case: [id number] Authorizing Provider: Kvng Rodriguez MD Collected: 06/22/2025 10:18 AM Ordering Location: OB/Gynecology Received: 06/22/2025 11:24 AM First Screen: Susan Cronin, CT, ASCP Specimen: Pap Test, ThinPrep, Cervix Performed By: #### L [id number] #### [facility] CLIA [id number] [address] [place] [address] [place] [facility] CLIA [id number] [address] [place] [address] [place] CLINICAL HISTORY, CYTOLOGY, INSURANCE SALES REPRESENTATIVE First Pap Smear Normal [facility] Comment on above: Order Comment: Speci men Type: FLUID SPECIMEN Ordering Facility: [facility] Address: [address] [place] [address] Performed By: #### L [id number] #### [facility] CLIA [id number] [address] [place] [address] [place] [facility] CLIA [id number] [address] [place] [address] [place] FINAL PERFORMING LAB [facility] Comment on above: Order Comment: Speci men Type: FLUID SPECIMEN Ordering Facility: [facility] Address: [address] [place] [address] Result Comment: Tech nical component, skin tanner screening performed at: [facility], [address] [place], [place] [address] CLIA: [id number] Diagnostic interpretation performed at: [facility], [address] [place] [address] CLIA# [id number] Advertising Copywriter: García Shelley MD Performed By: #### L [id number] #### [facility] CLIA [id number] [address] [place] [address] [place] [facility] CLIA [id number] [address] [place] [address] [place] INTERPRETATION, CYTOLOGY, INSURANCE SALES REPRESENTATIVE [facility] Comment on above: Order Comment: Speci men Type: FLUID SPECIMEN Ordering Facility: [facility] Address: [address] [place] [address] Result Comment: Nega tive for intraepithelial lesion or malignancy. at 1601 EDT Performed By: #### L [id number] #### [facility] CLIA [id number] [address] [place] [address] [place] [facility] CLIA [id number] [address] [place] [address] [place] LMP 06/07/2025 Normal [facility] Comment on above: Order Comment: Speci men Type: FLUID SPECIMEN Ordering Facility: [facility] Address: [address] [place] [address] Performed By: #### L [id number] #### [facility] CLIA [id number] [address] [place] [address] [place] [facility] CLIA [id number] [address] [place] [address] [place] PAP DISCLAIMER COMMENT The Pap Smear is a screening test for cervical cancer. False negative results occur with all screening tests, emphasizing the need for rescreening at recommended intervals, and clinical correlation. [facility] Comment on above: Order Comment: Speci men Type: FLUID SPECIMEN Ordering Facility: [facility] Address: [address] [place] [address] Performed By: #### L [id number] #### [facility] CLIA [id number] [address] [place] [address] [place] [facility] CLIA [id number] [address] [place] [address] [place] PAP CHOIR ACCOMPANIST COMMENT This specimen has been analyzed by the FDA-approved [employer] System, which uses digital imaging and an enhanced artificial intelligence image analysis algorithm to identify gonzalez of interest on the microscopic slide, to assist the facilities assistant and pathologist in evaluating cells on ThinPrep Pap tests. Following analysis, gonzalez of interest on the microscopic slide selected by the algorithm are reviewed by a facilities assistant. If a sample requires hierarchical review, the pathologist will review the same gonzalez of interest selected by the algorithm prior to final interpretation. [facility] Comment on above: Order Comment: Speci men Type: FLUID SPECIMEN Ordering Facility: [facility] Address: [address] [place] [address] Performed By: #### L [id number] #### [facility] CLIA [id number] [address] [place] [address] [place] [facility] CLIA [id number] [address] [place] [address] [place] MR/BMS.Yosi 04-26-2022 MR/BMS.[facility] [address] [place], [place] [address] OFFICE VISIT Date of Service: 04/26/22 MR#: [id number] Acct: [id number] Name: ANTONY DIOR Rep #: [id number] : 2005 Provider: FLORENCE weinstein Age/Sex: 17/F [place] [facility] Status: Signed Intake Vital Signs 04/23/22 19:30 Height 5 ft 7 in Intake Visit Reasons: assessment Chief Complaint: assessment Allergies No Known Allergies Allergy (Verified 04/23/22 19:45) : Yes Current gender identity: female [facility] Medical History (Updated 04/25/22 @ 07:22 by [...] mother Z39.1 Time Spent (min) 15 Comment [id number] 04/26/22 1102 Date Christin Singh NP LIFE CYCLE ASSESSMENT ANALYST-C Darroner Signature: Date (if applicable) CC: [facility] Pathology Specimen OBon PATH. Spec OB SEE PATHOLOGY REPORT [facility] Comment on above: Order Comment: Comme nts: growth restrictionSend Specimen For (Specify): Studies @ [facility] Lab:RoutineTime of Procedure: 0434Date of Procedure: 04/24/22Reason specimen being sent to pathology (Hx/complications):growth restrictionType of specimen: PlacentaType of procedure performed: Other Result Comment: Spec imen submitted to Anatomical Pathology Department for testing. Performed By: #### L 350.1800 ####[facility] [address] [place], [place], [address] CBC-Complete Blood Cnt No Di ffon 04-25-2022 Erythrocyte distribution width (RBC) [Ratio] 16.6 % High 11.6-14.6 [facility] Comment on above: Order Comment: Reaso n for Laboratory Test Day #1 Performed By: #### L 100.0500 #### [facility] [address] [place], [address] Hematocrit (Bld) [Volume fraction] 23.5 % Low 37-46 [facility] Comment on above: Order Comment: Reaso n for Laboratory Test Day #1 Performed By: #### L 100.0500 #### [facility] [address] [place] [place], [address] Hemoglobin (Bld) [Mass/Vol] 7.1 g/dL Low 12.0-15.0 [facility] Comment on above: Order Comment: Reaso n for Laboratory Test Day #1 Performed By: #### L 100.0500 #### [facility] [address] [place], [address] MCH (RBC) [Entitic mass] 24.8 pg Low 25.0-35.0 [facility] Comment on above: Order Comment: Reaso n for Laboratory Test Day #1 Performed By: #### L 100.0500 #### [facility] [address] [place], [address] MCHC (RBC) [Mass/Vol] 30.2 g/dL Low 32-36 [facility] Comment on above: Order Comment: Reaso n for Laboratory Test Day #1 Performed By: #### L 100.0500 #### [facility] [address] [place], [address] MCV (RBC) [Entitic vol] 82.2 fL Normal 78-96 [facility] Comment on above: Order Comment: Reaso n for Laboratory Test Day #1 Performed By: #### L 100.0500 #### [facility] [address] [place], [address] Platelet mean volume (Bld) [Entitic vol] 10.4 fL Normal 6.2-12.0 [facility] Comment on above: Order Comment: Reaso n for Laboratory Test Day #1 Performed By: #### L 100.0500 #### [facility] [address] [place], [address] Platelets (Bld) [#/Vol] 211 10*3/uL Normal 150-450 [facility] Comment on above: Order Comment: Reaso n for Laboratory Test Day #1 Performed By: #### L 100.0500 #### [facility] [address] [place], [address] RBC (Bld) [#/Vol] 2.86 10*6/uL Low 4.1-4.8 [facility] Comment on above: Order Comment: Reaso n for Laboratory Test Day #1 Performed By: #### L 100.0500 #### [facility] [address] [place], [address] RDW SD 49.3 fl High 35.1-43.9 [facility] Comment on above: Order Comment: Reaso n for Laboratory Test Day #1 Performed By: #### L 100.0500 #### [facility] [address] [place], [address] WBC (Bld) [#/Vol] 11.9 10*3/uL Normal 4.5-13.0 [facility] Comment on above: Order Comment: Reaso n for Laboratory Test Day #1 Performed By: #### L 100.0500 #### [facility] [address] [place], [address] Discharge Instructionon 08-0 Discharge Instruction [facility] Medical Records Department [address] [place] [address] Instructions for Home/Discharge Instructions 04/25/22 0720 MR#: [id number] Acct: [id number] Name: ANTONY DIOR Rep #: [id number] : 2005 17 From: García Coronado MD [...] Admission Admit Date/Time: 04/23/22 18:55 Attending Provider: Riya Coronado Primary Care Provider: Paty Dela Cruz Discharge Orders/Prescriptions Referrals / Follow Up: Paty Dela Cruz DO [Primary Care Provider] - Disposition Discharge Orders: Discharge Patient (Routine); Ordered 04/25/22 Ordered By: Dr. García Coronado 04/25/22 0721 García Coronado MD CC: Dr. Paty Dela Cruz DO Signed [facility] Operative Reporton Operative Report [facility] Medical Records Department [address] [place] [address] Operative Report 04/24/22 0454 MR#: [id number] Acct: [id number] Name: ANTONY DIOR Rep #: [id number] : 2005 17 From: Riya Coronado DO PCP: Dr. Paty Dela Cruz DO Status:ADM IN Location: NZ153-5 Maternal Data Information Final MAL: 05/05/22 Final [...] DO; Dr. Riya Coronado DO Signed [facility] CBC W/Diff, Automatedon 08-0 -2021 Absolute Lymph 1.91 X10 3/uL Normal 0.83-4.51 [facility] Comment on above: Performed By: #### B TS, L100.0100 ####[facility] [address] [place], [address] Absolute Neut 5.8 X10 3/uL Normal 2.0-7.7 [facility] Comment on above: Performed By: #### Phil GALLAGHER, L100.0100 ####[facility] [address] [place], [address] Basophils/100 WBC (Bld) 0.2 % Normal 0-1 [facility] Comment on above: Performed By: #### B ELLIOTT, L100.0100 ####[facility] [address] [place], [address] Eosinophils/100 WBC (Bld) 0.4 % Normal 0-3 [facility] Comment on above: Performed By: #### Phil GALLAGHER, L100.0100 ####[facility] [address] [place], [address] Erythrocyte distribution width (RBC) [Ratio] 16.4 % High 11.6-14.6 [facility] Comment on above: Performed By: #### Phil GALLAGHER, L100.0100 ####[facility] [address] [place], [address] Hematocrit (Bld) [Volume fraction] 30.5 % Low 37-46 [facility] Comment on above: Performed By: #### Phil GALLAGHER, L100.0100 ####[facility] [address] [place], [address] Hemoglobin (Bld) [Mass/Vol] 9.5 g/dL Low 12.0-15.0 [facility] Comment on above: Performed By: #### B ELLIOTT, L100.0100 ####[facility] [address] [place], [address] IG% 0.700 Normal 0.0-0.9 [facility] Comment on above: Result Comment: IG% - Immature Granulocytes (promyelocytes, myelocytes and metamyelocytes) > 1% indicates that a LEFT SHIFT is Present. Performed By: #### Phil GALLAGHER, L100.0100 ####[facility] [address] [place], [address] Lymphocytes/100 WBC (Bld) 23.0 % Low 25-45 [facility] Comment on above: Performed By: #### Phil GALLAGHER, L100.0100 ####[facility] [address] [place], [address] MCH (RBC) [Entitic mass] 25.3 pg Normal 25.0-35.0 [facility] Comment on above: Performed By: #### Phil GALLAGHER, L100.0100 ####[facility] [address] [place], [address] MCHC (RBC) [Mass/Vol] 31.1 g/dL Low 32-36 [facility] Comment on above: Performed By: #### Phil GALLAGHER, L100.0100 ####[facility] [address] [place], [address] MCV (RBC) [Entitic vol] 81.1 fL Normal 78-96 [facility] Comment on above: Performed By: #### Phil GALLAGHER, L100.0100 ####[facility] [address] [place], [address] Monocytes/100 WBC (Bld) 5.5 % Normal 3-6 [facility] Comment on above: Performed By: #### Phil GALLAGHER, L100.0100 ####[facility] [address] [place], [address] Neutrophils/100 WBC (Bld) 70.2 % High 34-64 [facility] Comment on above: Performed By: #### Phil GALLAGHER, L100.0100 ####[facility] [address] [place], [address] Nucleated RBC (Bld) [#/Vol] 0 10*3/uL Normal 0-5 [facility] Comment on above: Performed By: #### Phil GALLAGHER, L100.0100 ####[facility] [address] [place], [address] Platelet mean volume (Bld) [Entitic vol] 11.3 fL Normal 6.2-12.0 [facility] Comment on above: Performed By: #### Phil GALLAGHER, L100.0100 ####[facility] [address] [place], [address] Platelets (Bld) [#/Vol] 287 10*3/uL Normal 150-450 [facility] Comment on above: Performed By: #### Phil GALLAGHER, L100.0100 ####[facility] [address] [place], [address] RBC (Bld) [#/Vol] 3.76 10*6/uL Low 4.1-4.8 [facility] Comment on above: Performed By: #### Phil GALLAGHER, L100.0100 ####[facility] [address] [place], [address] RDW SD 47.7 fl High 35.1-43.9 [facility] Comment on above: Performed By: #### Phil GALLAGHER, L100.0100 ####[facility] [address] [place], [address] WBC (Bld) [#/Vol] 8.3 10*3/uL Normal 4.5-13.0 [facility] Comment on above: Performed By: #### Phil GALLAGHER, L100.0100 ####[facility] [address] [place], [address] COVID 19 AG RAPID (RN COLLE T)on [...] RAPID METHOD BinaxNow COVID19 Ag Card Normal [facility] Comment on above: Performed By: #### M 100.505 #### [facility] [address] [place] [place], [address] H AND P Exam - OB/GYNon 08-0 H&P Exam - ROUSTABOUT [facility] Medical Records Department [address] [place] [address] H P Exam - ROUSTABOUT 04/23/222038 MR#: [id number] Acct: [id number] Name: ANTONY DIOR Rep #: [id number] : 2005 17 From: Riya Coronado DO PCP: Dr. Paty Dela Cruz, DO Status:ADM IN Location: [id number] HPI - General General Date of Admission: [...] 05/05/22 Final MAL Source: US <20 weeks [facility] Medical History (Updated 04/23/22 @ 20:46 by [...] DO; Dr. Riya Coronado, DO Signed [facility] Surgery Specimen Level Von 0 04-23-2022 Surgery [...] and maternal surfaces AM:santa 04/25/2022 TC:5 CPT: 85758 -------- Signed (signature on file) Dr. Juan Carlos Epperson DO 04/26/22 1153 -------- Normal [facility] Comment on above: Performed By: #### P SUV ####[facility] [address] [place], [address] Type AND Screenon 04-23-2022 Ab SCREEN GEL Negative [facility] Comment on above: Order Comment: Labor Performed By: #### B TS, L100.0100 ####[facility] [address] [place], [address] ABO and Rh group Nom (Bld) Blood group A Rh(D) positive Normal [facility] Comment on above: Order Comment: Labor Performed By: #### B TS, L100.0100 ####[facility] [address] [place], [address] Chlamydia/GC JOSE aptimaon GC BY NUC ACID Negative Normal Negative [facility] Comment on above: Result Comment: Perf ormed at: =G - [facility] [address] [id number] Extension Course Coordinator: Rosa Laughlin MD, Phone: [phone] Performed By: #### L 7000.1800, L3890.6005, L100.0100, L509.8000, L3890.6100, L3890.6300, BPNTSNC, L509.4005, M100.2200 ####[facility] [address] [place], [place], [address] CHLAMY,NUC ACID Negative Normal Negative [facility] Comment on above: Performed By: #### L 7000.1800, L3890.6005, L100.0100, L509.8000, L3890.6100, L3890.6300, BPNTSNC, L509.4005, M100.2200 ####[facility] [address] [place], [place], [address] Urine Cultureon 09-09-2021 [facility]RC Lactobacillus specie s [place] Count 50,000-80,000 Normal [facility] Comment on above: Performed By: #### L 7000.1800, L3890.6005, L100.0100, L509.8000, L3890.6100, L3890.6300, BPNTSNC, L509.4005, M100.2200 ####[facility] [address] [place], [place], [address] CBC W/Diff, Automatedon 08-23 Absolute Lymph 1.56 X10 3/uL Normal 0.83-4.51 [facility] Comment on above: Performed By: #### L 7000.1800, L3890.6005, L100.0100, L509.8000, L3890.6100, L3890.6300, BPNTSNC, L509.4005, M100.2200 #### [facility] [address] [place], [address] Absolute Neut 2.9 X10 3/uL Normal 2.0-7.7 [facility] Comment on above: Performed By: #### L 7000.1800, L3890.6005, L100.0100, L509.8000, L3890.6100, L3890.6300, BPNTSNC, L509.4005, M100.2200 #### [facility] [address] [place], [address] Basophils/100 WBC (Bld) 0.6 % Normal 0-1 [facility] Comment on above: Performed By: #### L 7000.1800, L3890.6005, L100.0100, L509.8000, L3890.6100, L3890.6300, BPNTSNC, L509.4005, M100.2200 #### [facility] [address] [place], [address] Eosinophils/100 WBC (Bld) 1.6 % Normal 0-3 [facility] Comment on above: Performed By: #### L 7000.1800, L3890.6005, L100.0100, L509.8000, L3890.6100, L3890.6300, BPNTSNC, L509.4005, M100.2200 #### [facility] [address] [place], [address] Erythrocyte distribution width (RBC) [Ratio] 14.5 % Normal 11.6-14.6 [facility] Comment on above: Performed By: #### L 7000.1800, L3890.6005, L100.0100, L509.8000, L3890.6100, L3890.6300, BPNTSNC, L509.4005, M100.2200 #### [facility] [address] [place] [place], [address] Hematocrit (Bld) [Volume fraction] 36.1 % Low 37-46 [facility] Comment on above: Performed By: #### L 7000.1800, L3890.6005, L100.0100, L509.8000, L3890.6100, L3890.6300, BPNTSNC, L509.4005, M100.2200 #### [facility] [address] [place] [place], [address] Hemoglobin (Bld) [Mass/Vol] 12.2 g/dL Normal 12.0-15.0 [facility] Comment on above: Performed By: #### L 7000.1800, L3890.6005, L100.0100, L509.8000, L3890.6100, L3890.6300, BPNTSNC, L509.4005, M100.2200 #### [facility] [address] [place], [address] IG% 0.200 Normal 0.0-0.9 [facility] Comment on above: Result Comment: IG% - Immature Granulocytes (promyelocytes, myelocytes and metamyelocytes) > 1% indicates that a LEFT SHIFT is Present. Performed By: #### L 7000.1800, L3890.6005, L100.0100, L509.8000, L3890.6100, L3890.6300, BPNTSNC, L509.4005, M100.2200 #### [facility] [address] [place] [place], [address] Lymphocytes/100 WBC (Bld) 30.7 % Normal 25-45 [facility] Comment on above: Performed By: #### L 7000.1800, L3890.6005, L100.0100, L509.8000, L3890.6100, L3890.6300, BPNTSNC, L509.4005, M100.2200 #### [facility] [address] [place], [address] MCH (RBC) [Entitic mass] 29.6 pg Normal 25.0-35.0 [facility] Comment on above: Performed By: #### L 7000.1800, L3890.6005, L100.0100, L509.8000, L3890.6100, L3890.6300, BPNTSNC, L509.4005, M100.2200 #### [facility] [address] [place] [place], [address] MCHC (RBC) [Mass/Vol] 33.8 g/dL Normal 32-36 [facility] Comment on above: Performed By: #### L 7000.1800, L3890.6005, L100.0100, L509.8000, L3890.6100, L3890.6300, BPNTSNC, L509.4005, M100.2200 #### [facility] [address] [place], [address] MCV (RBC) [Entitic vol] 87.6 fL Normal 78-96 [facility] Comment on above: Performed By: #### L 7000.1800, L3890.6005, L100.0100, L509.8000, L3890.6100, L3890.6300, BPNTSNC, L509.4005, M100.2200 #### [facility] [address] [place], [address] Monocytes/100 WBC (Bld) 10.6 % High 3-6 [facility] Comment on above: Performed By: #### L 7000.1800, L3890.6005, L100.0100, L509.8000, L3890.6100, L3890.6300, BPNTSNC, L509.4005, M100.2200 #### [facility] [address] [place], [address] Neutrophils/100 WBC (Bld) 56.3 % Normal 34-64 [facility] Comment on above: Performed By: #### L 7000.1800, L3890.6005, L100.0100, L509.8000, L3890.6100, L3890.6300, BPNTSNC, L509.4005, M100.2200 #### [facility] [address] [place], [address] Nucleated RBC (Bld) [#/Vol] 0 10*3/uL Normal 0-5 [facility] Comment on above: Performed By: #### L 7000.1800, L3890.6005, L100.0100, L509.8000, L3890.6100, L3890.6300, BPNTSNC, L509.4005, M100.2200 #### [facility] [address] [place], [address] Platelet mean volume (Bld) [Entitic vol] 9.8 fL Normal 6.2-12.0 [facility] Comment on above: Performed By: #### L 7000.1800, L3890.6005, L100.0100, L509.8000, L3890.6100, L3890.6300, BPNTSNC, L509.4005, M100.2200 #### [facility] [address] [place], [address] Platelets (Bld) [#/Vol] 296 10*3/uL Normal 150-450 [facility] Comment on above: Performed By: #### L 7000.1800, L3890.6005, L100.0100, L509.8000, L3890.6100, L3890.6300, BPNTSNC, L509.4005, M100.2200 #### [facility] [address] [place], [address] RBC (Bld) [#/Vol] 4.12 10*6/uL Normal 4.1-4.8 [facility] Comment on above: Performed By: #### L 7000.1800, L3890.6005, L100.0100, L509.8000, L3890.6100, L3890.6300, BPNTSNC, L509.4005, M100.2200 #### [facility] [address] [place], [address] RDW SD 46.3 fl High 35.1-43.9 [facility] Comment on above: Performed By: #### L 7000.1800, L3890.6005, L100.0100, L509.8000, L3890.6100, L3890.6300, BPNTSNC, L509.4005, M100.2200 #### [facility] [address] [place], [address] WBC (Bld) [#/Vol] 5.1 10*3/uL Normal 4.5-13.0 [facility] Comment on above: Performed By: #### L 7000.1800, L3890.6005, L100.0100, L509.8000, L3890.6100, L3890.6300, BPNTSNC, L509.4005, M100.2200 #### [facility] [address] [place], [address] HIV - WCHon 09-08-2021 HIV Non-Reactive Normal Nonreactive [facility] Comment on above: Performed By: #### L 7000.1800, L3890.6005, L100.0100, L509.8000, L3890.6100, L3890.6300, BPNTSNC, L509.4005, M100.2200 #### [facility] [address] [place], [place], [id number] Hepatitis B Surface Antigeno n 09-08-2021 HEP B Surf Ag Non-Reactive Normal Nonreactive [facility] Comment on above: Performed By: #### L 7000.1800, L3890.6005, L100.0100, L509.8000, L3890.6100, L3890.6300, BPNTSNC, L509.4005, M100.2200 ####[facility] [address] [place], [address] Hepatitis C Antibodyon 09-08 Hepatitis C Ab Non-Reactive Normal Nonreactive [facility] Comment on above: Result Comment: Non Reactive: < 0.8 Equivocal: >/= 0.8 to < 1.0 Reactive: >/= 1.0 The CDC recommends that a reactive/equivocal HCV antibody result be followed up by the HCV Nucleic Acid Amplification test (308702) Performed By: #### L 7000.1800, L3890.6005, L100.0100, L509.8000, L3890.6100, L3890.6300, BPNTSNC, L509.4005, M100.0 ####[facility] [address] [place], [address] L509.8000on 09-08-2021 Syphilis Abs Non-Reactive Normal [facility] Comment on above: Performed By: #### L 7000.1800, L3890.6005, L100.0100, L509.8000, L3890.6100, L3890.6300, BPNTSNC, L509.4005, M100.2200 #### [facility] [address] [place], [address] T AND S-No Charge w /PNPon 09-08-2021 Ab SCREEN GEL Negative Normal [facility] Comment on above: Order Comment: PN N Performed By: #### L 7000.1800, L3890.6005, L100.0100, L509.8000, L3890.6100, L3890.6300, BPNTSNC, L509.4005, M100.2200 #### [facility] [address] [place], [address] ABO and Rh group Nom (Bld) Blood group A Rh(D) positive Normal [facility] Comment on above: Order Comment: PN N Performed By: #### L 7000.1800, L3890.6005, L100.0100, L509.8000, L3890.6100, L3890.6300, BPNTSNC, L509.4005, M100.2200 #### [facility] [address] [place], [address] Rubella IgGon 09-08-2021 Rubella IgG Reactive Normal Nonreactive [facility] Comment on above: Result Comment: Anti body Results Interpretation of Immune Status Non Reactive Presumed Non-Immune Equivocal Equivocal Reactive Presumed Immune Performed By: #### L 7000.1800, L3890.6005, L100.0100, L509.8000, L3890.6100, L3890.6300, BPNTSNC, L509.4005, M100.2200 #### [facility] [address] 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 Normal [facility] C. trachomatis/GC PCR Panel on GeneXperton 02-21-2021 C. trachomatis/GC PCR Panel on GeneXpert Reason for preventing automatic release->Other Is this specimen being sent to an external lab?->No Release to patient->Manual release only 72616&Urine-First Void^^^Urine&Urine C. trachomatis PCR on GeneXpert: NEGATIVE-Chlamydia [...] evaluated by nucleic acid amplification techniques. 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 Interface Message Text Patient ID: Antony [...] Line *Present Clear Background *Present Lot Number [id number] POCT urinalysis dipstick Collection Time: 02/21/21 2:13 PM Result Value Ref Range POCT, Leukocytes, Urine 2+ (Moderate) (A) Negative POCT Nitrite, Urine Negative Negative POCT Protein, Urine 3+ (300mg/dL) (A) Negative - Trace mg/dl POCT Urine pH 6.0 5.0 - 8.0 pH POCT Blood, Urine 3+ (Large) (A) Negative POCT Urine Specific [place] 1.025 1.005 - 1.030 POCT Ketones, Urine Negative Negative mg/dl POCT Glucose, Urine Negative Negative mg/dl Normal [facility] Urine Cultureon 02-21-2021 Bacteria identified Cx Nom (U) Is this specimen being sent to an external lab?->No Urine already at the lab. Went out on 02/21/21 1800. Add on lab Release to patient->Automatic 31122&Urine-Bladder^^ ^Urine&Urine Urine Culture: Gram negative sherin Source: URNBL Collected: 02/21/21 14:13 Site: Urine Received : 02/22/21 09:42 Urine Culture FINAL 02/24/21 09:09 50,000 - 100,000 CFU/ml of Normal Skin/urogenital teddy present <10,000 CFU/ml Gram negative sherin If further work-up is needed, providers should call the Microbiology lab within 3 days. 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 Authentication Interface Message Text Patient ID: Antony [...] Blood, Urine Negative Negative POCT Urine Specific [place] 1.010 1.005 - 1.030 POCT Ketones, Urine Negative Negative mg/dl POCT Glucose, Urine Negative Negative mg/dl Normal [facility] Urine Cultureon 09-21-2020 Bacteria identified Cx Nom (U) Is this specimen being sent to an external lab?->No 52017&Urine-Midstream ^^^Urine&Urine Urine Culture: 50,000 - 100,000 CFU/ml of Normal Skin/urogenital teddy Source: URNMD Collected: 09/21/20 12:05 Site: Urine Received : 09/21/20 20:42 Urine Culture FINAL 09/23/20 09:31 50,000 - 100,000 CFU/ml of Normal Skin/urogenital teddy present Normal [facility] Comment on above: Performed By: #### U R[facility] #### [place] [address] Encounters Encounter Date Encounter Type Care Provider Facility Start: 06-22-2025 End: 06-22-2025 ambulatory SELF Facility:[facility] Start: 06-22-2025 Encounter for gyneco logical examination (general) (routine) without abnormal findings KVNG RODRIGUEZ [facility] Payers Date Payer Category Payer Unknown [id number] Progress note 06-22-2025 Note Date & Type Note Facility 06-22-2025 Note HNO ID: [id number] Author: KVNG RODRIGUEZ MD Service: ? 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 Antony is a 20 year old No [...] OB History No obstetric history on file. 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 As applicable, any other physician, advance practice provider, medical student, or other health professional student that will be observing or involved in the sensitive examination for educational or training purposes was discussed with the Patient or Authorized Front End Alignment Specialist. The Patient or Authorized Front End Alignment Specialist has agreed to proceed with the sensitive [...] external genitalia normal, normal Bartholin's glands, urethra, [place]'s glands, no vulvar lesions, no cervical lesions, [...] removed without diff (more content not included)... [facility] Summary Purpose Family History No Family History Records FoundNo Family History Records FoundNo Family History Records Found Advance Directives No Advanced Directives Records FoundNo Advanced Directives Records FoundNo Advanced Directives Records Found Additional Source Comments INFORMATION SOURCE (unrecogn ized section and content) DATE CREATED AUTHOR 03/16/2021 [facility] DATE CREATED AUTHOR AUTHOR'S ORGANVICENTA ATION 05/04/2022 [facility] DATE CREATED AUTHOR AUTHOR'S ORGANIZ ATION 06/27/2025 [facility] FOR RECORDS PERTAINING TO PATIENTS WHO ARE [...] BE BASED ON THE PRIMARY CLINICAL RECORDS. [facility] [employer] provides no warranty or guarantee of the accuracy or completeness of information in this document.
--- NOTE | 2025-09-01 21:20 | ED.RN ---
Pt received 100cc of Normal Saline.
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
[2025-09-01 21:41] VITALS: BP 0/0; PULSE 0; RESP 0; TEMP -17.7; TEMP 0; O2SAT 0
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
--- NOTE | 2025-09-02 00:34 | ED.RN ---
Pt being transferred to [facility] at this time. [facility] does not have a case number at this time and will call when available.
== END 2025-09-02 00:44 ==
PROVIDERS: Emergency Provider Emergency Medicine; Visit Provider Emergency Medicine
DX: I46.9 Cardiac arrest, cause unspecified (principal); F17.290 Nicotine dependence, other tobacco product, uncomplicated; V49.88XA Car occupant (driver) (passenger) injured in other specified transport accidents, initial encounter
CPT/HCPCS: 92950; 99282; A4216